=== PATIENT | female | born 1970 | race American Indian/Alaskan Native ===

== ENCOUNTER 2017-02-24 08:54 | Emergency (ER) | payer BC ==
[2017-02-24 10:02] LABS: BASO # 0.1 K/uL (0.0-0.2); BASO % 0.9 % (0.0-2.0); EOS # 0.1 K/uL (0.0-0.7); EOS % 1.5 % (0.0-4.0); HEMATOCRIT 39.7 % (34.0-47.0); LYMPH # 2.3 K/uL (1.0-4.3); LYMPH % 34.1 % (20.0-40.0); MEAN CELL VOLUME 82.8 fL (81.0-99.0); MEAN CORPUSCULAR HGB CONC 32.6 g/dL (33.0-37.0); MEAN PLATELET VOLUME 9.6 fL (7.2-11.7); MONO # 0.7 K/uL (0.0-0.8); MONO % 9.5 % (0.0-10.0); RED CELL DISTRIBUTION WIDTH 16.4 % (11.5-14.5); WHITE BLOOD COUNT 6.8 K/uL (4.8-10.8)
--- NOTE | 2017-02-24 10:11 | C.PDOC ---
History Of Present Illness 46-year-old female, presents to the emergency department with complaints of lower abdominal pain x1 week. Patient notes pain is intermittent in nature and it is described as a crampy, pressure-like sensation. Patient notes occasional associated nausea. Denies vomiting, diarrhea, fevers, chills, vaginal bleed, or discharge. LMP: 01/18. Patient also notes a Hx of hernia repair. Time Seen by Provider: 02/24/17 09:09 Chief Complaint (Nursing): Abdominal Pain History Per: Patient History/Exam Limitations: no limitations Onset/Duration Of Symptoms: Days Current Symptoms Are (Timing): Still Present Severity: Moderate Past Medical History Reviewed: Historical Data, Nursing Documentation, Vital Signs Vital Signs: Last Vital Signs Temp 98.6 F 02/24/17 12:34 Pulse 80 02/24/17 12:34 Resp 16 02/24/17 12:34 BP 151/86 H 02/24/17 12:34 Pulse Ox 100 02/24/17 12:34 - Medical History PMH: HTN Surgical History: Hernia Repair, - [facility] BREAST DX PROCEDURE NEC (09/07/14) DX ULTRASOUND-THORAX NEC (09/07/14) PERCUTAN NEEDLE BIOPSY OF BREAST (09/07/14) Family History: States: No Known Family Hx - Social History Hx Tobacco Use: No Hx Alcohol Use: No Hx Substance Use: No - Immunization History Hx Tetanus Toxoid Vaccination: No Hx Influenza Vaccination: No Hx Pneumococcal Vaccination: No Review Of Systems Except As Marked, All Systems Reviewed And Found Negative. Constitutional: Negative for: Fever Cardiovascular: Negative for: Chest Pain, Palpitations Gastrointestinal: Positive for: Nausea, Abdominal Pain. Negative for: Vomiting , Diarrhea Genitourinary: Negative for: Vaginal Discharge, Vaginal Bleeding Musculoskeletal: Negative for: Back Pain Physical Exam - Physical Exam Appears: Non-toxic, No Acute Distress Skin: Warm, Dry, No Rash Head: Atraumatic, Normacephalic Eye(s): bilateral: Normal Inspection, PERRL, EOMI Nose: Normal Oral Mucosa: Moist Lips: Normal Appearing Neck: Normal ROM Chest: Symmetrical Cardiovascular: Rhythm Regular, No Murmur Respiratory: Normal Breath Sounds, No Accessory Muscle Use Gastrointestinal/Abdominal: Soft, No Tenderness, No Guarding, No Rebound Extremity: Normal ROM Neurological/Psych: Oriented x3, Normal Speech ED Course And Treatment - Laboratory Results Result Diagrams: 02/24/17 09:55 02/24/17 09:55 O2 Sat by Pulse Oximetry: 98 - CT Scan/US US Transvaginal Other Rad Studies (CT/US): Read By Radiologist, Radiology Report Reviewed CT/US Interpretation: Accession No. : [id number]. Patient Name / ID : MARCIO Pino / [id number]. Exam Date : 02/24/2017 10:10:10 ( Approved ). Study Comment : Sex / Age : F / 46Y. Creator : Swapnil Rothman MD. Dictator : Swapnil Rothman MD. 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 Approver2 : Report Date : 02/24/2017 12:07:00. My Comment : . PELVIC ULTRASONOGRAPHY: HISTORY: abd pain. COMPARISON: None available. TECHNIQUE: Transabdominal and transvaginal pelvic ultrasound was performed with longitudinal and transverse images submitted for interpretation. FINDINGS : UTERUS: Measures 12.4 x 6.6 x 7.5 cm. Uterus is enlarged and appears anteverted with 2 myomata within the myometrium. The largest in the high posterior fundus and is slightly hypoechoic measuring 3.0 x 2.9 x 2.5 cm. A 2nd is seen at the posterior fundus at the mid level measure 1.6 x 1.6 x 1.7 cm. Both the sub serosal but do not appear to encroach the submucous space. ENDOMETRIUM: Measures 8.7 mm in diameter. Unremarkable. CERVIX: No cervical abnormality identified. RIGHT OVARY: Measures 3.2 x 2.1 x 3.3 cm. No solid mass. Normal flow. LEFT OVARY: Measures 4.4 x 2.7 x 3.7 cm. No solid mass. Normal flow. A 1.5 cm cyst is seen at the left ovary which is unremarkable appearing. FREE FLUID: No significant free fluid noted. OTHER FINDINGS: None. IMPRESSION: A moderately enlarged uterus appreciated with 2 fundal myoma to the an unremarkable myometrium and endometrium otherwise. A probable dominant follicle is seen the left ovary with the right ovary unremarkable. No evidence to suggest ovarian torsion bilaterally. Medical Decision Making Medical Decision Making: Impression: 46y/o F comes in w/ abdominal pain. Plan: * CMP, Lipase * Toradol, Zofran * HCG/UA * US Pelvis * Reassess and Disposition Reassess Patient feels better after medicine. US shows ovarian cyst. Pt states she has an OBGYN. She will be discharged for outpt f/u in 1-2 days. All questions answered. Disposition Counseled Patient/Family Regarding: Studies Performed, Diagnosis, Need For Followup, Rx Given - Disposition Disposition: HOME/ ROUTINE Disposition Time: 11:46 Condition: IMPROVED Additional Instructions: follow up with your family law paralegal in 2 days call to make an appointment take medications as needed return to hospital if symptoms worsens or progress Prescriptions: Naproxen [Naprosyn] 500 mg PO BID PRN #16 tab PRN Reason: Pain, Moderate (4-7) Ondansetron ODT [Zofran ODT] 4 mg PO TID PRN #12 odt PRN Reason: Nausea/Vomiting Instructions: Ovarian Cyst (ED), Uterine Fibroids (ED) Forms: [facility] (Slovak), General Discharge Instructions - Clinical Impression Clinical Impression: Uterine fibroid, Ovarian cyst - Scribe Statement The provider has reviewed the documentation as recorded by the Scribe (Helen Landaverde) All medical record entries made by the Scribe were at my direction and personally dictated by me. I have reviewed the chart and agree that the record accurately reflects my personal performance of the history, physical exam, medical decision making, and the department course for this patient. I have also personally directed, reviewed, and agree with the discharge instructions and disposition.
[2017-02-24 10:39] LABS: CALCIUM 8.3 mg/dl (8.6-10.4); GFR AFRICAN-AMERICAN > 60
[2017-02-24 10:42] LABS: ALB/GLOB RATIO 1.3 (1.0-2.1); ALKALINE PHOSPHATASE 55 U/L (38-126); ALT/SGPT 23 U/L (9-52); AST/SGOT 41 U/L (14-36); BILIRUBIN,TOTAL 1.2 mg/dL (0.2-1.3); BLOOD UREA NITROGEN 8 mg/dL (7-17); CARBON DIOXIDE 23 mmol/L (22-30); CHLORIDE 105 mmol/L (98-107); GLUCOSE,RANDOM 97 mg/dL (65-105); POTASSIUM 5.4 mmol/L (3.6-5.2); SODIUM 136 mmol/L (132-148); TOTAL PROTEIN 7.4 g/dL (6.3-8.3)
[2017-02-24 11:12] LABS: RBC URINE 10 /hpf (0-3); URINE BACTERIA RARE (<OCC); URINE BILIRUBIN NEGATIVE (NEGATIVE); URINE BLOOD 1+ (NEGATIVE); URINE COLOR Straw (YELLOW); URINE GLUCOSE (UA) NORMAL (Normal); URINE KETONE NEGATIVE (NEGATIVE); URINE LEUKOCYTE ESTERASE NEG Leu/uL (Negative); URINE PROTEIN NEGATIVE (NEGATIVE); URINE UROBILINOGEN NORMAL mg/dL (0.2-1.0); WBC URINE 1 /hpf (0-5)
[2017-02-24 11:40] VITALS: RESP 16
--- NOTE | 2017-02-24 12:08 | US ---
PELVIC ULTRASONOGRAPHY: HISTORY: abd pain COMPARISON: None available. TECHNIQUE: Transabdominal and transvaginal pelvic ultrasound was performed with longitudinal and transverse images submitted for interpretation. FINDINGS: UTERUS: Measures 12.4 x 6.6 x 7.5 cm. Uterus is enlarged and appears anteverted with 2 myomata within the myometrium. The largest in the high posterior fundus and is slightly hypoechoic measuring 3.0 x 2.9 x 2.5 cm. A 2nd is seen at the posterior fundus at the mid level measure 1.6 x 1.6 x 1.7 cm. Both the sub serosal but do not appear to encroach the submucous space. ENDOMETRIUM: Measures 8.7 mm in diameter. Unremarkable. CERVIX: No cervical abnormality identified. RIGHT OVARY: Measures 3.2 x 2.1 x 3.3 cm. No solid mass. Normal flow. LEFT OVARY: Measures 4.4 x 2.7 x 3.7 cm. No solid mass. Normal flow. A 1.5 cm cyst is seen at the left ovary which is unremarkable appearing. FREE FLUID: No significant free fluid noted. OTHER FINDINGS: None. IMPRESSION: A moderately enlarged uterus appreciated with 2 fundal myoma to the an unremarkable myometrium and endometrium otherwise. A probable dominant follicle is seen the left ovary with the right ovary unremarkable. No evidence to suggest ovarian torsion bilaterally.
[2017-02-24 12:35] VITALS: BP 151/86; PULSE 80; TEMP 98.6
[2017-02-24 13:39] VITALS: O2SAT 98
== END 2017-02-24 12:35 | disposition home or self-care (01) ==
LOC: C.ER 08:54
DX: D25.9 Leiomyoma of uterus, unspecified (principal); N83.209 Unspecified ovarian cyst, unspecified side
CPT/HCPCS: 76830; 76856; 80053; 81001; 83690; 84703; 85025; 96374; 99285; J2405